=== PATIENT | female | born 1955 | race Caucasian/White ===

== ENCOUNTER → 2018-12-06 13:22 | Outpatient (BNV) | payer MEDICAID, SELFPAY ==
--- NOTE | 2018-12-06 13:22 | PR.OPPALCARP ---
OP Palliative Care CWC Care Plan Follow-up Comments Additional Comments: On 12/02/18, ONCOLOGIST called Ludmila Myles ([phone] Ext. [phone]) from [facility] to obtain update on authorization for patient wheelchair. Ludmila reported they had received the referral, but were not able to process it because patient last name is showing Taqueria not Case. ONCOLOGIST did not have documentation regarding the difference in name. Ludmila also reported she only does inpatient authorizations and since patient was in the outpatient setting auth needed to be submitted to the outpatient department. Ludmila faxed outpatient auth form. ONCOLOGIST attempted to contact patient, with no success and left a message. ONCOLOGIST spoke to patient on 12/05/18 who reported her last name was Taqueria on her insurance card as it was her maiden name. ONCOLOGIST completed the authorization form. [place] [facility] [place] [phone]. Will continue to follow-up. ONCOLOGIST continued to re-fax referral 2x's as it was not going through. *CWC Office Visit complete CWC Offive Visit Complete CWC Visit Complete?: No
--- NOTE | 2018-12-06 13:32 | CWCCLINC_ITS ---
OP Palliative Care CWC Care Plan Follow-up Comments Additional Comments: On 12/02/18, RN EMERGENCY called Ludmila Myles ([phone] Ext. [phone]) from [facility] to obtain update on authorization for patient wheelchair. Ludmila reported they had received the referral, but were not able to process it because patient last name is showing Taqueria not Case. RN EMERGENCY did not have documentation regarding the difference in name. Ludmila also reported she only does inpatient authorizations and since patient was in the outpatient setting auth needed to be submitted to the outpatient department. Ludmila faxed outpatient auth form. RN EMERGENCY attempted to contact patient, with no success and left a message. RN EMERGENCY spoke to patient on 12/05/18 who reported her last name was Taqueria on her insurance card as it was her maiden name. RN EMERGENCY completed the authorization form. Fax was sent to [facility] [place] on 12/06/18 to [phone]. Will continue to follow-up. RN EMERGENCY continued to re-fax referral 2x's as it was not going through. *CWC Office Visit complete CWC Offive Visit Complete CWC Visit Complete?: No